=== PATIENT | female | born 1945 | race Caucasian/White ===

== ENCOUNTER 2021-01-14 19:20 | Inpatient (IN) | payer MEDICARE, OTHER, SELFPAY ==
--- NOTE | ~2021-01-14 | XR_ITS ---
EXAMINATION: XR HIP, RIGHT CLINICAL INFORMATION: Fall COMPARISON: None TECHNIQUE: Frontal view the pelvis with coned frontal and crosstable lateral views of the right hip of the right hip. FINDINGS: Patient status post bilateral total hip arthroplasties. Femoral components are well seated within the bilateral screwed in acetabular cups. Unfortunately there is an obliquely oriented periprosthetic fracture along the proximal femoral diaphysis to lateral subtrochanteric region of the right femur. Pelvic bones otherwise appear intact with degenerative changes in the lower lumbar spine. Multiple surgical clips noted. Vascular calcification seen. I do not appreciate any acute abnormality within the region of the visualized contralateral left hip. XR/XR hip RT w PEL1V IMPRESSION: Minimally displaced periprosthetic fracture along the femoral component of the right total hip arthroplasty.
--- NOTE | ~2021-01-14 | XR_ITS ---
EXAMINATION: PORTABLE CHEST 1 VIEW CLINICAL INFORMATION: preop . COMPARISON: No recent pertinent prior studies are available for comparison. TECHNIQUE: Portable frontal view of the chest was obtained. FINDINGS: The lungs are hypoexpanded. No focal infiltrate, effusion, edema, or pneumothorax. Cardiac and mediastinal silhouettes are within normal limits for technique. No acute bony abnormality seen with degenerative changes in the spine and bilateral shoulders. XR/XR chest 1V IMPRESSION: Hypoexpanded but no acute process seen otherwise
[2021-01-14 19:27] VITALS: BP 152/88; PULSE 86; O2SAT 97
--- NOTE | 2021-01-14 19:27 | ED.FALL ---
HPI - Fall General Chief Complaint: Fall Stated Complaint: fall Time Seen by Provider: 01/14/21 19:27 Source: patient Mode of arrival: ambulatory Limitations: no limitations History of Present Illness HPI Narrative: Patient with history of bilateral hip replacement right hip was replaced in 2001 was doing fine seen orthopedic last week x-ray was good, today patient tripped and fell over a rug and landed on her right hip complaining of increased pain in the right hip without any deformity unable to get up no head injury no loss of consciousness no other injury has some low back pain Related Data Home Medications Medication Instructions Recorded Confirmed alprazolam 0.5 mg PO BID PRN 01/14/21 01/14/21 aspirin 81 mg PO DAILY 01/14/21 01/14/21 bupropion HCl 150 mg PO DAILY 01/14/21 01/14/21 coenzyme Q10 100 mg PO DAILY 01/14/21 01/14/21 estradiol [Vagifem] 10 mcg VAGINAL TUSA 01/14/21 01/14/21 ezetimibe 10 mg PO DAILY 01/14/21 01/14/21 magnesium 500 mg PO DAILY 01/14/21 01/14/21 multivitamin 1 tab PO DAILY 01/14/21 01/14/21 omeprazole 40 mg PO QPM 01/14/21 01/14/21 quinapril 10 mg PO DAILY 01/14/21 01/14/21 rosuvastatin 20 mg PO DAILY 01/14/21 01/14/21 sertraline 200 mg PO DAILY 01/14/21 01/14/21 Allergies Allergy/AdvReac Type Severity Reaction Status Date / Time Sulfa (Sulfonamide Allergy Unknown SWELLING Unverified 03/22/20 14:34 Antibiotics) [SULFA (SULFONAMIDE ANTIBIOTICS)] UNKNOWN Allergy Unknown SWELLING Uncoded 03/22/20 14:34 Review of Systems Review of Systems: Constitutional : No Weight loss, No Fever, No Chills ENT/Mouth : No sore throat, No Rhinorrhea Eyes: No Eye Pain, No Swelling Cardiovascular : No Chest Pain, no palpitations Respiratory : No Cough, No Sputum, no shortness of breath Gastrointestinal : no Nausea, No Vomiting, No Diarrhea, No abdominal Pain, no black stools Genitourinary : No Dysuria, No Urinary Frequency Musculoskeletal : + joint pain, No Myalgias, No Joint Swelling Skin : No Skin Lesions, No rash Neuro : No Weakness, No Numbness, No Dizziness, No Headache Psych : No Anxiety/Panic, No Depression Heme/Lymph: No Bruising, No Lymphadenopathy Endocrine : No Polyuria, No Polydipsia All other systems reviewed and are negative [facility] Past Medical History Medical History Hyperlipemia Hypertension Osteoarthritis Surgical History S/P hip replacement Social History Social History Advance Directives: No Advance Directives Information Provided: Yes service: No Current occupational status: retired Physical Exam Vital Signs: Vital Signs: Last Vital Signs Temp 98.1 F 01/14/21 19:56 Pulse 90 01/14/21 23:07 Resp 22 H 01/14/21 23:07 BP 149/58 H 01/14/21 23:07 Pulse Ox 98 01/14/21 23:07 Body Mass Index 32.3 Appearance: Alert. Oriented X3. In moderate distress. Eyes: PERRLA, No Nystagmus HEENT: Pharynx normal. Oral Mucosa moist atraumatic normocephalic Neck: Normal inspection. Neck supple. CVS: Normal heart rate and rhythm. Pulses normal. Respiratory: No respiratory distress. Equal air entry bilateral, no wheezing/rales/rhonchi Abdomen: Soft and nontender. Bowel sounds are present, no mass palpable, no CVA tenderness Skin: Skin warm and dry. Normal skin color. Normal skin turgor. Extremities: No lower extremity edema. No calf tenderness tenderness at right femur trochanteric area no deformity increased pain on hip flexion neurovascular intact Neuro: Oriented X 3. No motor deficit. No sensory deficit.No cerebellar signs , cranial nerves II-XII intact MDM - Fall MDM Narrative Medical decision making narrative: Patient status post mechanical fall with right femur fracture around the right hip prosthesis. Case discussed Dr. Ga orthopedic advised to admit to medical service will plan to do surgery tomorrow Patient's lab showed increased WBC count of 21,000 with out any source of infection likely leukemoid reaction Lab Data Attestation: I reviewed the patient's lab results. Result diagrams: 01/14/21 20:09 01/14/21 20:09 Labs: Lab Results 01/14/21 01/14/21 01/14/21 Range/Units 20:09 20:09 20:09 WBC 21.0 H (4.8-10.8) X10*3/uL RBC 4.31 (4.20-5.50) X10*6/uL Hgb 12.2 (12.0-16.0) g/dl Hct 37.7 (37-47) % MCV 87.5 (80-98) fL MCH 28.3 (27.0-33.0) pg MCHC 32.4 (31.0-35.0) g/dl RDW 13.7 (11.0-16.0) % Plt Count 338 (160-400) X10*3/uL MPV 9.3 L (9.4-12.3) fL Immature Gran % (Auto) 0.5 H (0.0-0.4) % Neut % (Auto) 82.7 H (45-73) % Lymph % (Auto) 10.7 L (20-40) % [place] % (Auto) 5.4 (2-11) % Eos % (Auto) 0.6 (0-4) % Baso % (Auto) 0.1 (0-2) % Lymph # (Auto) 2.2 (1.2-4.9) X10*3/uL [place] # (Auto) 1.1 (0.1-1.2) X10*3/uL Eos # (Auto) 0.1 (0.0-0.4) X10*3/uL Baso # (Auto) 0.0 (0.0-0.2) X10*3/uL Abs Immat Gran (auto) 0.11 H (0.00-0.03) X10*3/uL Absolute Neuts (auto) 17.4 H (2.0-8.3) X10*3/uL Absolute Nucleated RBC 0.000 (0.0-0.012) X10*3/uL Nucleated RBC % (auto) 0.0 (0.0-0.2) /100WBC PT 10.9 (9.9-13.0) SEC INR 1.0 (0.9-1.1) APTT 34.6 (24.1-38.0) SEC Sodium 140 (135-145) mmol/L Potassium 4.7 (3.3-5.1) mmol/L Chloride 105 (96-108) mmol/L Carbon Dioxide 24 (22-29) mmol/L Anion Gap 16 (12-20) BUN 17 H (9-16) mg/dL Creatinine 1.01 (0.5-1.4) mg/dL Estim Creat Clear Calc 42.3 Estimated GFR 54 Random Glucose 105 (60-115) mg/dL Calcium 9.4 (8.4-10.2) mg/dL COVID-19 (LENY) (Negative) COVID-19 Clin Com 01/14/21 Range/Units 20:33 WBC (4.8-10.8) X10*3/uL RBC (4.20-5.50) X10*6/uL Hgb (12.0-16.0) g/dl Hct (37-47) % MCV (80-98) fL MCH (27.0-33.0) pg MCHC (31.0-35.0) g/dl RDW (11.0-16.0) % Plt Count (160-400) X10*3/uL MPV (9.4-12.3) fL Immature Gran % (Auto) (0.0-0.4) % Neut % (Auto) (45-73) % Lymph % (Auto) (20-40) % [place] % (Auto) (2-11) % Eos % (Auto) (0-4) % Baso % (Auto) (0-2) % Lymph # (Auto) (1.2-4.9) X10*3/uL [place] # (Auto) (0.1-1.2) X10*3/uL Eos # (Auto) (0.0-0.4) X10*3/uL Baso # (Auto) (0.0-0.2) X10*3/uL Abs Immat Gran (auto) (0.00-0.03) X10*3/uL Absolute Neuts (auto) (2.0-8.3) X10*3/uL Absolute Nucleated RBC (0.0-0.012) X10*3/uL Nucleated RBC % (auto) (0.0-0.2) /100WBC PT (9.9-13.0) SEC INR (0.9-1.1) APTT (24.1-38.0) SEC Sodium (135-145) mmol/L Potassium (3.3-5.1) mmol/L Chloride (96-108) mmol/L Carbon Dioxide (22-29) mmol/L Anion Gap (12-20) BUN (9-16) mg/dL Creatinine (0.5-1.4) mg/dL Estim Creat Clear Calc Estimated GFR Random Glucose (60-115) mg/dL Calcium (8.4-10.2) mg/dL COVID-19 (LENY) Negative (Negative) COVID-19 Clin Com See Note Imaging Data Hip x-ray: Attestation: I personally reviewed and interpreted this imaging study as follows: Radiologist's impression: [address] [id number] ReportSigned Patient: Ursula Winchester RMR#: [id number]: [id number]:[id number]/Sex: 75 / FADM Date: 01/14/21Loc: [email or web address] Dr: Ordering Physician: Maria G Abraham DO Date of Service: 01/14/21 Procedure(s): XR hip RT w PEL1V Accession Number(s): [id number] cc: Maria G Abraham DO~ EXAMINATION: XR HIP, RIGHT CLINICAL INFORMATION: Fall COMPARISON: None TECHNIQUE: Frontal view the pelvis with coned frontal and crosstable lateral views of the right hip of the right hip. FINDINGS: Patient status post bilateral total hip arthroplasties. Femoral components are well seated within the bilateral screwed in acetabular cups. Unfortunately there is an obliquely oriented periprosthetic fracture along the proximal femoral diaphysis to lateral subtrochanteric region of the right femur. Pelvic bones otherwise appear intact with degenerative changes in the lower lumbar spine. Multiple surgical clips noted. Vascular calcification seen. I do not appreciate any acute abnormality within the region of the visualized contralateral left hip. XR/XR hip RT w PEL1V IMPRESSION: Minimally displaced periprosthetic fracture along the femoral component of the right total hip arthroplasty. Discharge Plan Discharge Clinical Impression: Fracture of hip, right, closed Qualifiers: Encounter type: initial encounter Qualified Code(s): S72.001A - Fracture of unspecified part of neck of right femur, initial encounter for closed fracture Patient Disposition: Admitted As Inpatient
--- NOTE | 2021-01-14 19:35 | PC.NURSE ---
MD at bedside for eval. Pt transported to XRay, to be triaged upon return.
--- NOTE | 2021-01-14 19:46 | ECG_ITS ---
Test Reason : FALL Blood Pressure : / mmHG Vent. Rate : 089 BPM Atrial Rate : 089 BPM P-R Int : 180 ms QRS Dur : 066 ms QT Int : 372 ms P-R-T Axes : 073 046 028 degrees QTc Int : 452 ms Normal sinus rhythm Normal ECG When compared with ECG of 04-JAN-2002 09:56, No significant change was found Referred By: Alexys Mondragon Electronically Signed By:Osbaldo Chavira
[2021-01-14 19:56] VITALS: BP 149/51; PULSE 68; RESP 16; TEMP 36.7; O2SAT 100; BMI 32.3
--- NOTE | 2021-01-14 20:03 | PC.NURSE ---
at bedside explaining XRay results and plan for admission due to FX.
--- NOTE | 2021-01-14 20:15 | PC.NURSE ---
IV established, labs obtained. surgical instrument technician at bedside for EKG. Pt aware of plan for vo.
[2021-01-14 20:18] LABS: MANUAL DIFF FLAG NO
[2021-01-14 20:24] LABS: Basophils Percent Auto 0.1 % (0-2); Eosinophils Absolute Auto 0.1 X10*3/uL (0.0-0.4); Eosinophils Percent Auto 0.6 % (0-4); Hematocrit 37.7 % (37-47); Hemoglobin 12.2 g/dl (12.0-16.0); Imm Gran Abs Auto 0.11 X10*3/uL (0.00-0.03); Imm Gran Pct Auto 0.5 % (0.0-0.4); Lymphocytes Absolute Auto 2.2 X10*3/uL (1.2-4.9); Lymphocytes Percent Auto 10.7 % (20-40); Mean Corpuscular HGB Conc 32.4 g/dl (31.0-35.0); Mean Corpuscular Hemoglobin 28.3 pg (27.0-33.0); Mean Corpuscular Volume 87.5 fL (80-98); Mean Platelet Volume 9.3 fL (9.4-12.3); Monocytes Absolute Auto 1.1 X10*3/uL (0.1-1.2); Monocytes Percent Auto 5.4 % (2-11); Neutrophils Absolute Auto 17.4 X10*3/uL (2.0-8.3); Neutrophils Percent Auto 82.7 % (45-73); Platelet Count 338 X10*3/uL (160-400); Red Blood Count 4.31 X10*6/uL (4.20-5.50); Red Cell Distribution Width 13.7 % (11.0-16.0)
[2021-01-14 20:29] LABS: Prothrombin Time 10.9 SEC (9.9-13.0)
[2021-01-14 20:31] LABS: Partial Thromboplastin Time 34.6 SEC (24.1-38.0)
[2021-01-14] MEDS: Morphine Sulfate 4 MG/ML CARTRIDGE IVPUSH (20:38)
[2021-01-14] MEDS: ondansetron HCL 4 MG/2 ML VIAL IVPUSH (20:39)
[2021-01-14 20:46] LABS: Anion Gap 16 (12-20); Blood Urea Nitrogen 17 mg/dL (9-16); Calcium 9.4 mg/dL (8.4-10.2); Carbon Dioxide 24 mmol/L (22-29); Chloride 105 mmol/L (96-108); Creatinine Clr Calc Pharmacy 42.3; Estimated Glomerular Filt Rate 54; Glucose Random 105 mg/dL (60-115); Potassium 4.7 mmol/L (3.3-5.1); Sodium 140 mmol/L (135-145)
[2021-01-14 20:54] LABS: COVID-19 Test Negative (Negative)
--- NOTE | 2021-01-14 20:56 | PC.NURSE ---
Dunlap inserted per MD order, clear yellow UO noted. Pharmacy at bedside for med rec. Pt aware of plan to admit.
--- NOTE | 2021-01-14 21:16 | PHA.MEDREC ---
Pharmacy Consult ? Medication Reconciliation Pharmacy has completed the medication reconciliation.
--- NOTE | 2021-01-14 22:52 | PC.NURSE ---
Hospitalist at bedside for primary eval.
--- NOTE | 2021-01-14 23:06 | PC.NURSE ---
CM at bedside.
[2021-01-14 23:07] VITALS: BP 149/58; PULSE 90; RESP 22; O2SAT 98
[2021-01-14] MEDS: Omeprazole 40 MG CAPSULE.DR PO (23:09)
--- NOTE | 2021-01-14 23:27 | MHC.CM.PN ---
Addendum entered by Anastasia Jarvis 01/14/21 23:40: Pt tells CM that she will meet doctor in the morning and if she likes her, she will have surgery here. Had hip surgery in 2000.2001. Original Note: CM met with bertrand woman and her daughter, Cris Winchester ([phone]). IMM reviewed and signed per protocol 01/14/21@2320. [facility]/ Damián Winchester ([phone]). Copy requested. 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 Pt lives with , has cane, walker and wheelchair. Pt had bilateral hip replacements [facility] from [facility]. Pt and daughter expressing concerns about having care at [facility], since pt had hip replacement surgery there. Pt is agreeable to admisssion and pain management. Pt would like to meet orthopedist. Explained that hospitalist will admit her, that ED provider had spoken with and that she will be seen tomorrow by orthopedic surgeon, with surgery at some time tomorrow. Pt aware that she makes the decisions as to who and where care will be provided. Pt met with Dr. Gutierrez. Pt seems much more comfortable with having surgery here. Pt would like Dr. Angel if available. Pt aware that she will need some PT rehab. Does not feel she has the strength for acute rehab. Pt is requesting STR at [facility] or [facility]. No referrals placed pending pt decision for care in am. Awaiting room assignment. CM to follow for d/c needs.
[2021-01-14] MEDS: Acetaminophen 325 MG TABLET 650 MG PO (23:32)
[2021-01-14] MEDS: ALPRAZolam 0.5 MG TABLET PO (23:32)
--- NOTE | 2021-01-14 23:37 | PC.NURSE ---
Pt reporting 6/10 pain to right hip, requesting pain medication. Pt medicated with Tylenol and Xanax, aware of plan for Morphine @ 0030. VSS. Lights dim for comfort. Continue to monitor.
[2021-01-15] VITALS (7 sets, daily range): BP systolic 105–139; BP diastolic 45–60; PULSE 70–87; RESP 12–18; TEMP 36.8; O2SAT 92–100
[2021-01-15] MEDS: 0.9 % Sodium Chloride Flush 3 ML SYRINGE IVFLUSH ×2 (00:11→09:29)
--- NOTE | 2021-01-15 05:19 | PC.NURSE ---
Pt resting in bed, wakes easily to voice. Pt reports 5/10 pain to right hip, states the pain is tolerable, pt requesting to hold on the IV Morphine. Pt aware the order is Q4H and to ring when requesting medication for pain. VSS at this time. Daughter remains at bedside. Lights dim, door closed per request.
--- NOTE | 2021-01-15 05:59 | P.HPHOSP_ITS ---
History of Present Illness Date of Service: 01/15/21 Chief Complaint: Fall This is a 75-year-old female with past medical history of hypertension, hyperlipidemia, osteoarthritis, status post bilateral hip replacement who presents to the hospital after mechanical fall. Patient reports that she was preparing dinner, tripped on a mat in her kitchen and fell forward, when she fell she has significant pain on her right leg, hand therefore came into the hospital. She denies any loss of consciousness, no head injury, no dizziness, no abdominal pain nausea or vomiting, no chest pain, no shortness of breath, no urinary symptoms. No diarrhea constipation. No numbness tingling or weakness. Review of system otherwise negative On arrival to the ED hemodynamically stable with no significant abnormal vitals Labs are significant for WBC count of 21,000, otherwise unremarkable Hip x-ray shows minimally displaced periprosthetic fracture along the femoral component of the right total hip arthroplasty Patient will be admitted with consult to orthopedic surgery Review of Systems Review of Systems: Yes all other systems are reviewed and are negative [facility] Medical History Hyperlipemia Hypertension Osteoarthritis Surgical History S/P hip replacement Social History Advance Directives: No Advance Directives Information Provided: Yes service: No Current occupational status: retired Meds Allergies Allergy/AdvReac Type Severity Reaction Status Date / Time Sulfa (Sulfonamide Allergy Unknown SWELLING Unverified 03/22/20 14:34 Antibiotics) [SULFA (SULFONAMIDE ANTIBIOTICS)] UNKNOWN Allergy Unknown SWELLING Uncoded 03/22/20 14:34 Active Medications: Current Medications Generic Name Dose Route Start Last Admin Trade Name Freq PRN Reason Stop Dose Admin Acetaminophen 650 mg 01/14/21 22:22 01/14/21 23:32 Acetaminophen 325 Mg Tablet PO 650 mg Q6H PRN Administration Pain, Mild (Pain Scale 1-3) Alprazolam 0.5 mg 01/14/21 22:25 01/14/21 23:32 Alprazolam 0.5 Mg Tablet PO 0.5 mg BID PRN Administration Anxiety Aspirin 81 mg 01/15/21 09:00 Aspirin Enteric Coated 81 Mg Tablet. PO DAILY ALESSIA Atorvastatin Calcium 80 mg 01/15/21 21:00 Atorvastatin Calcium 80 Mg Tablet PO BEDTIME [facility] Bupropion HCl 150 mg 01/15/21 09:00 Bupropion Hcl Xl 150 Mg Tab.Er.24h PO DAILY [facility] Docusate Sodium 100 mg 01/14/21 22:22 Docusate Sodium 100 Mg Capsule PO DAILY PRN Constipation Ezetimibe 10 mg 01/15/21 09:00 Ezetimibe 10 Mg Tablet PO DAILY [facility] Lisinopril 10 mg 01/15/21 09:00 Lisinopril 10 Mg Tablet PO DAILY [facility] Magnesium Oxide 400 mg 01/15/21 09:00 Magnesium Oxide 400 Mg Tablet PO DAILY [facility] Morphine Sulfate 4 mg 01/14/21 22:25 Morphine Sulfate 4 Mg/Ml Cartridge IVPUSH Q4H PRN Pain, Severe (Pain Scale 7-10) Multivitamins/Vitamin C 1 tab 01/15/21 09:00 Multivitamin Tablet PO DAILY [facility] Omeprazole 40 mg 01/14/21 22:30 01/14/21 23:09 Omeprazole 40 Mg Capsule. PO 40 mg DAILY@0630 [facility] Administration Ondansetron HCl 4 mg 01/14/21 22:22 Ondansetron Hcl 4 Mg/2 Ml Vial IVPUSH Q8H PRN Nausea and Vomiting Pharmacy Consult 1 each 01/14/21 20:04 Consult Rx Perform Med Rec MISCELLANE ONCE PRN Consult order Sertraline HCl 200 mg 01/15/21 09:00 Sertraline Hcl 100 Mg Tablet PO DAILY [facility] Sodium Chloride 3 ml 01/15/21 00:00 01/15/21 00:11 0.9 % Sodium Chloride Flush 3 Ml Syringe IVFLUSH 3 ml QSHIFT [facility] Administration Home Medications Medication Instructions Recorded Confirmed Last Taken Type alprazolam 0.5 mg PO BID PRN 01/14/21 01/14/21 01/14/21 History aspirin 81 mg PO DAILY 01/14/21 01/14/21 01/14/21 History bupropion HCl 150 mg PO DAILY 01/14/21 01/14/21 01/14/21 History coenzyme Q10 100 mg PO DAILY 01/14/21 01/14/21 01/14/21 History estradiol [Vagifem] 10 mcg VAGINAL TUSA 01/14/21 01/14/21 01/12/21 History ezetimibe 10 mg PO DAILY 01/14/21 01/14/21 01/14/21 History magnesium 500 mg PO DAILY 01/14/21 01/14/21 01/14/21 History multivitamin 1 tab PO DAILY 01/14/21 01/14/21 01/14/21 History omeprazole 40 mg PO QPM 01/14/21 01/14/21 01/13/21 History quinapril 10 mg PO DAILY 01/14/21 01/14/21 01/14/21 History rosuvastatin 20 mg PO DAILY 01/14/21 01/14/21 01/13/21 History sertraline 200 mg PO DAILY 01/14/21 01/14/21 01/14/21 History Physical Exam Vital Signs and Narrative: Vital Signs: Last Vital Signs Temp 98.1 F 01/14/21 19:56 Pulse 70 01/15/21 05:18 Resp 16 01/15/21 05:18 BP 120/56 L 01/15/21 05:18 Pulse Ox 95 01/15/21 05:18 Body Mass Index 32.3 Const: General: cooperative and no acute distress Orientation/consciousness: patient oriented x3 Eyes: General: appearance normal, both eyes and all related structures Resp: Effort & Inspection: normal respiratory effort and able to speak in complete sentences Cardio: Rate: regular rate Rhythm: regular rhythm GI: Palpation (GI): Soft to palpation Auscultation: normal bowel sounds Skin: General skin exam: no rashes or lesions noted Neuro: General: patient oriented x3 Cognition (Neuro): normal cognition Extrem: Other: Significant pain on the right hip with movement, currently has ice packs placed on it General: Yes normal to inspection and Yes no pedal edema Results Labs CBC and Chem 7: 01/14/21 20:09 01/14/21 20:09 Labs: Laboratory Results - last 24 hr 01/14/21 01/14/21 01/14/21 20:09 20:09 20:09 MCV 87.5 MCH 28.3 MCHC 32.4 RDW 13.7 Plt Count 338 MPV 9.3 L Immature Gran % (Auto) 0.5 H Neut % (Auto) 82.7 H Lymph % (Auto) 10.7 L [place] % (Auto) 5.4 Eos % (Auto) 0.6 Baso % (Auto) 0.1 Lymph # (Auto) 2.2 [place] # (Auto) 1.1 Eos # (Auto) 0.1 Baso # (Auto) 0.0 Abs Immat Gran (auto) 0.11 H Absolute Neuts (auto) 17.4 H Absolute Nucleated RBC 0.000 Nucleated RBC % (auto) 0.0 PT 10.9 INR 1.0 APTT 34.6 Anion Gap 16 Estim Creat Clear Calc 42.3 Estimated GFR 54 Random Glucose 105 Calcium 9.4 COVID-19 (LENY) COVID-19 Clin Com 01/14/21 20:33 MCV MCH MCHC RDW Plt Count MPV Immature Gran % (Auto) Neut % (Auto) Lymph % (Auto) [place] % (Auto) Eos % (Auto) Baso % (Auto) Lymph # (Auto) [place] # (Auto) Eos # (Auto) Baso # (Auto) Abs Immat Gran (auto) Absolute Neuts (auto) Absolute Nucleated RBC Nucleated RBC % (auto) PT INR APTT Anion Gap Estim Creat Clear Calc Estimated GFR Random Glucose Calcium COVID-19 (LENY) Negative COVID-19 Clin Com See Note Imaging Radiologist's Impressions: Impressions Hip/Pelvis X-Ray 01/14/21 19:25 IMPRESSION: Minimally displaced periprosthetic fracture along the femoral component of the right total hip arthroplasty. Chest X-Ray 01/14/21 19:38 IMPRESSION: Hypoexpanded but no acute process seen otherwise Assessment and Plan (1) Periprosthetic fracture of hip: Status: Acute This is a 75-year-old female with past medical history of hip replacement bilaterally, who presents to the hospital with a fall. Found to have right hip fracture # periprosthetic right fracture of hip - fall was mechanical - no evidence of loss of consciousness, no dizziness, no syncope - x-ray of the hip showed minimally displaced periprosthetic fracture along the femoral component of the right total hip arthroplasty - orthopedic surgery was consulted by the ED - will see patient in a.m. - will keep patient NPO for possible intervention - pain control # hyperlipidemia - continue statin # hypertension - stable - continue quinapril # depression - continue sertraline and bupropion as well as alprazolam DVT prophylaxis: SCDs in anticipation of surgical intervention Quality Stroke Does the patient have a stroke diagnosis?: No VTE Prior VTE?: No VTE Risk Level:: Medical - moderate - high VTE Device Contraindication: N/A - Device Ordered VTE Drug Contraindication: Treatment Not Indicated
[2021-01-15] MEDS: Omeprazole 40 MG CAPSULE.DR PO (06:08)
--- NOTE | 2021-01-15 06:11 | PC.NURSE ---
Pt medicated per SEP. VSS. 400 ml of UO noted and documented. Pt resting in POC. Continue to monitor.
[2021-01-15 08:33] LABS: MANUAL DIFF FLAG NO
[2021-01-15 08:36] LABS: Basophils Percent Auto 0.2 % (0-2); Eosinophils Absolute Auto 0.1 X10*3/uL (0.0-0.4); Eosinophils Percent Auto 1.2 % (0-4); Hematocrit 38.1 % (37-47); Hemoglobin 12.2 g/dl (12.0-16.0); Imm Gran Abs Auto 0.03 X10*3/uL (0.00-0.03); Imm Gran Pct Auto 0.3 % (0.0-0.4); Lymphocytes Absolute Auto 1.9 X10*3/uL (1.2-4.9); Mean Corpuscular Hemoglobin 28.2 pg (27.0-33.0); Mean Platelet Volume 9.3 fL (9.4-12.3); Monocytes Absolute Auto 0.8 X10*3/uL (0.1-1.2); Monocytes Percent Auto 8.2 % (2-11); Neutrophils Absolute Auto 6.4 X10*3/uL (2.0-8.3); Neutrophils Percent Auto 69.1 % (45-73); Platelet Count 286 X10*3/uL (160-400); Red Blood Count 4.33 X10*6/uL (4.20-5.50); Red Cell Distribution Width 13.8 % (11.0-16.0); White Blood Count 9.2 X10*3/uL (4.8-10.8)
[2021-01-15 09:04] LABS: Anion Gap 14 (12-20); Blood Urea Nitrogen 16 mg/dL (9-16); Carbon Dioxide 24 mmol/L (22-29); Chloride 105 mmol/L (96-108); Creatinine Clr Calc Pharmacy 46.5; Estimated Glomerular Filt Rate 60; Glucose Random 112 mg/dL (60-115); Potassium 4.4 mmol/L (3.3-5.1); Sodium 139 mmol/L (135-145)
[2021-01-15] MEDS: Sertraline HCL 100 MG TABLET 200 MG PO (09:27)
[2021-01-15] MEDS: Magnesium Oxide 400 MG TABLET PO (09:27)
[2021-01-15] MEDS: Ezetimibe 10 MG TABLET PO (09:28)
[2021-01-15] MEDS: lisinopriL 10 MG TABLET PO (09:28)
--- NOTE | 2021-01-15 10:24 | PC.NURSE ---
This RN on first contact with pt who states she would like to be transferred to [facility] for surgical consult. Daughter not agreeable with plan discussed with Dr Grullon. Daughter states she spoke with director of [facility] who will have trauma surgeon consult her in ED at [facility] however no specific MD name given for accepting physician. Dr Castaneda notified and will be down to speak to pt regarding ?transfer. Pt acceptable to some morning meds but declined some d/t unk surgical plan. Request pain meds to be given prior to moving/transfer but has no pain with rest (at this time)
--- NOTE | 2021-01-15 10:37 | PC.NURSE ---
Dr Grullon and Dr Castaneda down to speak with pt/daughter, Awaiting [facility] to speak to [facility] regarding accepting MD as pt is inpatient and will need to be transported to floor at [facility]
[2021-01-15] MEDS: Morphine Sulfate 4 MG/ML CARTRIDGE IVPUSH (12:01)
[2021-01-15] MEDS: Lactated Ringers 1,000 ML 125 ML IVCONT (12:11)
--- NOTE | 2021-01-15 12:35 | PC.NURSE ---
Daughter of pt continues to inquire about transfer to [facility], increasingly agitated with staff as family is made aware of option to leave AMA or await accepting MD from [facility]. Swapna Salmeron (bilingual manager) called to assist and at bedside with Dr Castaneda discussing options with pt and daughter. Pt/family now await Michael (executive vice president and chief operating officer) as requested S/p morphine pt states pain 3/10, appears comfortable in bed. Cool packs applied to right upper thigh as pt reports this helps. Vitals stable. Dunlap with dark yellow urine. LR at 125ml/hr started. Moist swabs to lips for comfort
--- NOTE | 2021-01-15 12:47 | PM.DS ---
DS: Providers Provider Date of Service: 01/15/21 Date of admission: 01/14/21 22:22 Primary care physician: Smith Baez MD Consults: 01/14/21 22:24 Consult to Orthopedics Routine Consulting Provider: Sal Grullon Reason for consultation: hip fracture Has provider been notified: Yes DS: Diagnosis Discharge Diagnosis (1) Periprosthetic fracture of hip: Status: Acute DS: Medications Discharge Medications Home Medications: Home Medications Medication Instructions Recorded Confirmed alprazolam 0.5 mg PO BID PRN 01/14/21 01/14/21 aspirin 81 mg PO DAILY 01/14/21 01/14/21 bupropion HCl 150 mg PO DAILY 01/14/21 01/14/21 coenzyme Q10 100 mg PO DAILY 01/14/21 01/14/21 estradiol [Vagifem] 10 mcg VAGINAL TUSA 01/14/21 01/14/21 ezetimibe 10 mg PO DAILY 01/14/21 01/14/21 magnesium 500 mg PO DAILY 01/14/21 01/14/21 multivitamin 1 tab PO DAILY 01/14/21 01/14/21 omeprazole 40 mg PO QPM 01/14/21 01/14/21 quinapril 10 mg PO DAILY 01/14/21 01/14/21 rosuvastatin 20 mg PO DAILY 01/14/21 01/14/21 sertraline 200 mg PO DAILY 01/14/21 01/14/21 DS: Summary Hospital Course Hospital Course: Chief Complaint: Fall This is a 75-year-old female with past medical history of hypertension, hyperlipidemia, osteoarthritis, status post bilateral hip replacement who presents to the hospital after mechanical fall. Patient reports that she was preparing dinner, tripped on a mat in her kitchen and fell forward, when she fell she has significant pain on her right leg, hand therefore came into the hospital. She denies any loss of consciousness, no head injury, no dizziness, no abdominal pain nausea or vomiting, no chest pain, no shortness of breath, no urinary symptoms. No diarrhea constipation. No numbness tingling or weakness. Review of system otherwise negative On arrival to the ED hemodynamically stable with no significant abnormal vitals Labs are significant for WBC count of 21,000, otherwise unremarkable Hip x-ray shows minimally displaced periprosthetic fracture along the femoral component of the right total hip arthroplasty Hospital course: Patient was admitted and consult requested with Dr. Grullon who offered to operate on the patient, however patient and daughter who is healthcare Proxy stated that they prefer to have surgery done at [facility] where she has had prior orthopedic surgerie and as such I spoke to Dr Nguyễn at [facility] and accepted the patient in transfer. I had been on communication and about the plan to transfer with patient and her daughter. They absolutely wanted to go to [facility] even if it took AMA, fortunately we did not have to resort to that avenue. Time Spent with Patient Time attestation: Total time spent providing and/or coordinating discharge services: Discharge coordination time: Greater than 30 minutes Quality: Stroke Does the patient have a stroke diagnosis?: No Physical Exam Vital Signs: Vital Signs: Last Vital Signs Temp 98.1 F 01/14/21 19:56 Pulse 87 01/15/21 11:52 Resp 18 01/15/21 11:52 BP 124/60 01/15/21 12:12 Pulse Ox 97 01/15/21 12:12 Body Mass Index 32.3 DS: Data Data Completed and Pending Labs on day of discharge: Laboratory Results - last 24 hr 01/14/21 01/14/21 01/14/21 20:09 20:09 20:09 WBC 21.0 H RBC 4.31 Hgb 12.2 Hct 37.7 MCV 87.5 MCH 28.3 MCHC 32.4 RDW 13.7 Plt Count 338 MPV 9.3 L Immature Gran % (Auto) 0.5 H Neut % (Auto) 82.7 H Lymph % (Auto) 10.7 L [place] % (Auto) 5.4 Eos % (Auto) 0.6 Baso % (Auto) 0.1 Lymph # (Auto) 2.2 [place] # (Auto) 1.1 Eos # (Auto) 0.1 Baso # (Auto) 0.0 Abs Immat Gran (auto) 0.11 H Absolute Neuts (auto) 17.4 H Absolute Nucleated RBC 0.000 Nucleated RBC % (auto) 0.0 PT 10.9 INR 1.0 APTT 34.6 Sodium 140 Potassium 4.7 Chloride 105 Carbon Dioxide 24 Anion Gap 16 BUN 17 H Creatinine 1.01 Estim Creat Clear Calc 42.3 Estimated GFR 54 Random Glucose 105 Calcium 9.4 COVID-19 (LENY) COVID-19 Clin Com 01/14/21 01/15/21 01/15/21 20:33 08:29 08:29 WBC 9.2 RBC 4.33 Hgb 12.2 Hct 38.1 MCV 88.0 MCH 28.2 MCHC 32.0 RDW 13.8 Plt Count 286 MPV 9.3 L Immature Gran % (Auto) 0.3 Neut % (Auto) 69.1 Lymph % (Auto) 21.0 [place] % (Auto) 8.2 Eos % (Auto) 1.2 Baso % (Auto) 0.2 Lymph # (Auto) 1.9 [place] # (Auto) 0.8 Eos # (Auto) 0.1 Baso # (Auto) 0.0 Abs Immat Gran (auto) 0.03 Absolute Neuts (auto) 6.4 Absolute Nucleated RBC 0.000 Nucleated RBC % (auto) 0.0 PT INR APTT Sodium 139 Potassium 4.4 Chloride 105 Carbon Dioxide 24 Anion Gap 14 BUN 16 Creatinine 0.92 Estim Creat Clear Calc 46.5 Estimated GFR 60 Random Glucose 112 Calcium 9.0 COVID-19 (LENY) Negative COVID-19 Clin Com See Note Discharge Plan Discharge Anticipated Discharge Date/Time: 01/15/21 13:11 Patient Disposition: Xfer Acute Care Hospital Discharge Diagnosis: Hip fracture Referrals: [facility] [Outside] - 1 Week Smith Baez MD [Primary Care Provider] - 1 Week Discharge Medications: Continued sertraline 100 mg tablet 200 mg PO DAILY RF: 0 omeprazole 40 mg capsule,delayed release(DR/EC) 40 mg PO QPM RF: 0 quinapril 10 mg tablet 10 mg PO DAILY RF: 0 alprazolam 0.5 mg tablet 0.5 mg PO BID PRN (Reason: Anxiety) RF: 0 ezetimibe 10 mg tablet 10 mg PO DAILY RF: 0 rosuvastatin 20 mg tablet 20 mg PO DAILY RF: 0 bupropion HCl 150 mg tablet extended release 24 hr 150 mg PO DAILY RF: 0 estradiol [Vagifem] 10 mcg tablet 10 mcg vaginal TUSA RF: 0 multivitamin Tablet 1 tab PO DAILY RF: 0 magnesium 500 mg Tablet 500 mg PO DAILY RF: 0 coenzyme Q10 100 mg Capsule 100 mg PO DAILY RF: 0 Discontinued aspirin 81 mg Tablet,Delayed Release (Dr/Ec) 81 mg PO DAILY RF: 0 Discharge Orders: Discharge Order (Routine); Ordered 01/15/21 Ordered By: Jefe Castaneda Diet: advance to usual diet Activity on Discharge: As tolerated Stand Alone Forms: Patient Portal Discharge page Care Plan Goals: to have hip repaire Health Concerns: hip fracture Plan of Treatment: transfer to [facility] Assessment: As above
--- NOTE | 2021-01-15 12:49 | PC.NURSE ---
Sat down to 88-90% on room air s/p morphine and falling asleep, placed on 2lpm via nc. sat up to 98%
--- NOTE | 2021-01-15 14:57 | PC.NURSE ---
CALL RECEIVED FROM [facility] [place] LINE WITH ROOM ASSIGNMENT DR GANNON ACCEPTING MD ISAAC PEDRAZA 6 ROOM 26 RN TO RN [phone]
[2021-01-15] MEDS: Morphine Sulfate 2 MG/ML CARTRIDGE 1 MG IVPUSH ×2 (15:58)
== END 2021-01-15 15:08 | disposition short-term general hospital (02) | DRG 561 ==
LOC: HO.ED 21:32 → HO.EDOVER 22:42 → HO.S3 01-15 17:53
PROVIDERS: Admitting Provider Internal Medicine; Emergency Provider Internal Medicine; PCP Internal Medicine; Visit Provider Internal Medicine
DX: M97.01XA Periprosthetic fracture around internal prosthetic right hip joint, initial encounter (principal); Z96.643 Presence of artificial hip joint, bilateral; E78.5 Hyperlipidemia, unspecified; I10 Essential (primary) hypertension; F32.9 Major depressive disorder, single episode, unspecified; Z20.822 Contact with and (suspected) exposure to COVID-19; Z88.2 Allergy status to sulfonamides; Z79.899 Other long term (current) drug therapy
CPT/HCPCS: 36415; 71045; 73502; 80048; 85025; 85610; 85730; 87635; 93005; 99285; J2270; J2405

== ENCOUNTER 2021-03-25 14:11 | Outpatient (REF) | payer MEDICARE, OTHER, SELFPAY ==
[2021-03-25 16:32] LABS: Hematocrit 36.5 % (37-47); Hemoglobin 10.8 g/dl (12.0-16.0); Mean Corpuscular HGB Conc 29.6 g/dl (31.0-35.0); Mean Corpuscular Hemoglobin 26.3 pg (27.0-33.0); Mean Corpuscular Volume 88.8 fL (80-98); Mean Platelet Volume 9.9 fL (9.4-12.3); Platelet Count 546 X10*3/uL (160-400); Red Blood Count 4.11 X10*6/uL (4.20-5.50); Red Cell Distribution Width 14.4 % (11.0-16.0); White Blood Count 10.8 X10*3/uL (4.8-10.8)
[2021-03-25 17:00] LABS: Alanine Aminotransferase 7 U/L (0-31); Albumin Level 3.9 g/dL (3.5-5.0); Alkaline Phosphatase 159 U/L (39-117); Anion Gap 15 (12-20); Aspartate Amino Transferase 13 U/L (5-31); Bilirubin Total 0.2 mg/dL (0.0-1.0); Blood Urea Nitrogen 17 mg/dL (9-16); Calcium 9.3 mg/dL (8.4-10.2); Carbon Dioxide 26 mmol/L (22-29); Chloride 103 mmol/L (96-108); Estimated Glomerular Filt Rate > 60; Glucose Random 157 mg/dL (60-115); Iron 49 mcg/dL (30-160); Percent Iron Saturation 14 % (15-50); Potassium 4.9 mmol/L (3.3-5.1); Sodium 139 mmol/L (135-145); Total Iron Binding Capacity 345 mcg/dL (228-428); Total Protein 6.8 g/dL (6.5-8.0); Unsaturated Iron Binding 296 ug/dL
[2021-03-25 17:40] LABS: Folate > 20.0 ng/mL (> or = 4.0); Vitamin B12 321 pg/mL (200-900)
== END 2021-03-25 14:12 | disposition home or self-care (01) ==
LOC: HO.HMGCLNP 14:11
PROVIDERS: Visit Provider Internal Medicine
DX: D62 Acute posthemorrhagic anemia (principal)
CPT/HCPCS: 80053; 82607; 82746; 83540; 85027

== ENCOUNTER 2022-05-19 08:15 | Day surgery (SDC) | payer MEDICARE, OTHER, SELFPAY ==
[2022-05-13 15:12] VITALS: BMI 34.9
--- NOTE | 2022-05-15 13:21 | P.CONAN_ITS ---
Documented by User: Dayana Dorsey NP 05/15/22 13:25 HPI - Anesthesia Eval Consult details Narrative: 77yo F for Left Cataract Extraction IOL Insertion PCP cleared No previous cataract on record [facility] Active Problems Active Problems: All Active Problems (Updated 05/13/22 @ 15:12 by Ilene Dewey RN) Fracture of hip, right, closed (Acute) Periprosthetic fracture of hip (Acute) Past Medical History Medical History Anxiety Cataracts, both eyes GERD (gastroesophageal reflux disease) History of blood transfusion History of femur fracture Hyperlipemia Hypertension Knee pain, left Low back pain Osteoarthritis PUD (peptic ulcer disease) Urinary tract infection Surgical History Surgical History History of esophagogastroduodenoscopy (EGD) Hx of bilateral hip replacements Hx of colonoscopy Hx of hysterectomy Social History Social History Are you a primary career orientation teacher to a significant other at home: No Do you presently have visiting nurse or other home services: No Patient Tobacco Use Status: Never used Tobacco Use of substances other than those prescribed or required for medical reasons: No Have you been hit, kicked, punched, or otherwise hurt by someone within the past year? If so, by whom?: No Are you DNR?: No Advance Directives: No Advance Directives Information Provided: Yes Advance Directives on File: No Recently lost weight without trying: No Nutrition Risks: Poor intake 0-25% >4 days and Surgical patient >75years service: No Current occupational status: retired [employer] Allergies Allergy/AdvReac Type Severity Reaction Status Date / Time ciprofloxacin [From Cipro] Allergy Hives Verified 05/19/22 09:14 Home Medications Medication Instructions Recorded Confirmed Last Taken Type alprazolam 0.5 mg tablet 0.5 mg PO BID PRN Anxiety 01/14/21 05/13/22 05/19/22 History bupropion HCl 150 mg 24 hr tablet, 150 mg PO DAILY 01/14/21 05/13/22 05/19/22 History extended release coenzyme Q10 100 mg capsule 100 mg PO DAILY 01/14/21 05/13/22 01/14/21 History estradiol 10 mcg vaginal tablet 10 mcg vaginal 2XW 01/14/21 05/13/22 01/12/21 History (Vagifem) ezetimibe 10 mg tablet 10 mg PO DAILY 01/14/21 05/13/22 01/14/21 History magnesium 500 mg tablet 500 mg PO DAILY 01/14/21 05/13/22 01/14/21 History multivitamin 1 tab PO DAILY 01/14/21 05/13/22 01/14/21 History omeprazole 40 mg capsule,delayed 40 mg PO QAM 01/14/21 05/13/22 05/19/22 History release quinapril 10 mg tablet 10 mg PO DAILY 01/14/21 05/13/22 01/14/21 History rosuvastatin 20 mg tablet 20 mg PO DAILY 01/14/21 05/13/22 01/13/21 History sertraline 100 mg tablet 200 mg PO DAILY 01/14/21 05/13/22 05/19/22 History aspirin 81 mg chewable tablet 81 mg PO DAILY 05/13/22 05/13/22 Unknown History sulfamethoxazole 800 1 tab PO BID 05/13/22 05/13/22 Unknown History mg-trimethoprim 160 mg tablet (Bactrim DS) Exam Exam Date and Time: May 15, 2022 1321 Height,Weight and Vital Signs: Height 4 ft 11 in Weight 78.471 kg Assessment and Plan Assessment Anesthesia Assessment: Chart Reviewed Documented by User: Nathan iGraldo MD 05/19/22 09:17 [facility] Past Medical History Medical History Anxiety Cataracts, both eyes GERD (gastroesophageal reflux disease) History of blood transfusion History of femur fracture Hyperlipemia Hypertension Knee pain, left Low back pain Osteoarthritis PUD (peptic ulcer disease) Urinary tract infection Family History Family history of problems with anesthesia: No Surgical History Surgical History History of esophagogastroduodenoscopy (EGD) Hx of bilateral hip replacements Hx of colonoscopy Hx of hysterectomy History of Problems with Anesthesia: No Social History Social History Are you a primary career orientation teacher to a significant other at home: No Do you presently have visiting nurse or other home services: No Patient Tobacco Use Status: Never used Tobacco Use of substances other than those prescribed or required for medical reasons: No Have you been hit, kicked, punched, or otherwise hurt by someone within the past year? If so, by whom?: No Are you DNR?: No Advance Directives: No Advance Directives Information Provided: Yes Advance Directives on File: No Recently lost weight without trying: No Nutrition Risks: Poor intake 0-25% >4 days and Surgical patient >75years service: No Current occupational status: retired Meds Allergies Allergy/AdvReac Type Severity Reaction Status Date / Time ciprofloxacin [From Cipro] Allergy Hives Verified 05/19/22 09:14 Home Medications Medication Instructions Recorded Confirmed Last Taken Type alprazolam 0.5 mg tablet 0.5 mg PO BID PRN Anxiety 01/14/21 05/13/22 05/19/22 History bupropion HCl 150 mg 24 hr tablet, 150 mg PO DAILY 01/14/21 05/13/22 05/19/22 History extended release coenzyme Q10 100 mg capsule 100 mg PO DAILY 01/14/21 05/13/22 01/14/21 History estradiol 10 mcg vaginal tablet 10 mcg vaginal 2XW 01/14/21 05/13/22 01/12/21 History (Vagifem) ezetimibe 10 mg tablet 10 mg PO DAILY 01/14/21 05/13/22 01/14/21 History magnesium 500 mg tablet 500 mg PO DAILY 01/14/21 05/13/22 01/14/21 History multivitamin 1 tab PO DAILY 01/14/21 05/13/22 01/14/21 History omeprazole 40 mg capsule,delayed 40 mg PO QAM 01/14/21 05/13/22 05/19/22 History release quinapril 10 mg tablet 10 mg PO DAILY 01/14/21 05/13/22 01/14/21 History rosuvastatin 20 mg tablet 20 mg PO DAILY 01/14/21 05/13/22 01/13/21 History sertraline 100 mg tablet 200 mg PO DAILY 01/14/21 05/13/22 05/19/22 History aspirin 81 mg chewable tablet 81 mg PO DAILY 05/13/22 05/13/22 Unknown History sulfamethoxazole 800 1 tab PO BID 05/13/22 05/13/22 Unknown History mg-trimethoprim 160 mg tablet (Bactrim DS) Exam Airway Mallampati Class: II TM Dist: >3cm Neck ROM: Full Loose/Missing/Broken Teeth: Yes (extremely poor discolored teeth uppers spaced out diffusely, lowers also same and a couple are missing lower front) Heart: [id number] Lungs: cta b/l Assessment and Plan Assessment Anesthesia Assessment: Anesthesia Plan Discussed Final Anesthetic Review Family History of Problems with Anesthesia: No History of Problems with Anesthesia: No NPO: Yes ASA Class: III Final Preanesthetic Review: No Changes in Pt Med Stat, Meds/Allgs Chart Reviewed, Consent Obtained/Reviewed and Anes Risks/Benef Reviewed Patient Risk: Intermediate Procedure Risk: Intermediate Assessment/Block/Sedation in SS: Assess/Block/Sedation-SS Anesthetic Plan Anesthetic Plan: MAC: and Agree w/ Assess. and Plan Disposition: Standard PACU
--- NOTE | 2022-05-16 12:39 | MHC.SHP ---
Pre-Procedural Eval Section A Date of Service: 05/16/22 The patient is an INPATIENT: No Changes since office visit: No Cold of Flu in the past 2 weeks, No New Medical Problems, No Changes in Medication and No Patient answered all questions The History & Physical has been completed within 30 days and I have reviewed it.: Yes Section B Chief Complaint: Age-related nuclear cataract, left eye Allergies: Allergies Allergy/AdvReac Type Severity Reaction Status Date / Time Sulfa (Sulfonamide Allergy Unknown SWELLING Unverified 05/13/22 15:09 Antibiotics) [SULFA (SULFONAMIDE ANTIBIOTICS)] Plan Diagnosis/Plan: Unchanged I have reviewed the history and physical and performed a pertinent physical examination on my patient. No changes have occurred unless specified.
[2022-05-19 08:39] VITALS: BP 110/59; PULSE 79; RESP 18; TEMP 36.2; O2SAT 97; BMI 34.9
[2022-05-19] MEDS: Tetracaine HCl/PF 0.5% Oph Sol 4 ML DROPS 1 DROP EYE-LEFT (08:58)
[2022-05-19] MEDS: Ketorolac Tromethamine 0.5% Op 5 ML DROPS 1 DROP EYE-LEFT ×3 (08:58→09:01)
[2022-05-19] MEDS: Tropicamide 1 % Ophth Sol 3 ML BTL 1 DROP EYE-LEFT ×3 (08:58→09:01)
[2022-05-19] MEDS: Cyclopentolate 1 % Ophth Sol 2 ML DRPBTL 1 DROP EYE-LEFT ×3 (08:58→09:01)
[2022-05-19] MEDS: Phenylephrine HCL 2.5% Oph SoL 2 ML BOTTLE 1 DROP EYE-LEFT ×3 (08:59→09:01)
[2022-05-19] MEDS: Lactated Ringers 500 ML 50 ML IV (09:06)
--- NOTE | 2022-05-19 09:22 | HO.PNOPHT ---
Ophthalmology Procedure Procedure Date of Service: 05/19/22 Ophthalmology Viscoelastic: Healon Duet Dual Pack Pro Ophthalmology Lenses: [id number] (20) Procedure Notes: PREOPERATIVE DIAGNOSIS: Decreased visual acuity left eye secondary to cataract POSTOPERATIVE DIAGNOSIS: Same PROCEDURE: Left cataract extraction with intraocular lens insertion SURGEON: Miguel Chacon M.D. ANESTHESIA: Topical/MAC ESTIMATED BLOOD LOSS: None COMPLICATIONS: None After obtaining informed consent, the patient was brought to the operation room suite and placed in the supine position. After adequate sedation per anesthesia, topical drops of Tetracaine were given to the left eye. The eye was then prepped and draped in the usual sterile fashion. The operating room microscope was then positioned over the operative eye and a lid speculum placed. A paracentesis was created. Viscoelastic was then instilled into the anterior chamber. A three plane incision was then created temporally, utilizing a 2.85 mm keratome. Capsulotomy forceps were then utilized to create a circular tear capsulotomy. Hydrodissection and hydrodelineation were carried out until adequate mobilization of the nucleus occurred. Phacoemulsification was then utilized to remove the dense central nucleus followed by removal of the cortical material utilizing the automated aspiration irrigation unit. Viscoat elastic was instilled into the posterior capsular bag followed by placement of a posterior chamber intraocular lens without difficulty. The residual Viscoat elastic was then removed utilizing the automated IA machine. The wound was check and found to be watertight. The patient tolerated the procedure well and the lid speculum was removed. Intracameral injection of Vigamox 0.1 mL followed by a subtenon injection of Kenalog-40 0.2 mL were administered. The patient will be seen in the a.m.
[2022-05-19 09:52] VITALS: BP 108/54; PULSE 74; RESP 14; TEMP 36.3; O2SAT 98
== END 2022-05-19 09:55 | disposition home or self-care (01) ==
PROVIDERS: PCP Internal Medicine; Visit Provider Ophthalmology
PROC: (CPT 66985; principal; 2022-05-19 10:20)
DX: H25.12 Age-related nuclear cataract, left eye (principal); H52.4 Presbyopia; I10 Essential (primary) hypertension; E78.00 Pure hypercholesterolemia, unspecified; M81.0 Age-related osteoporosis without current pathological fracture; Z79.899 Other long term (current) drug therapy; Z88.1 Allergy status to other antibiotic agents; Z88.2 Allergy status to sulfonamides; Z87.891 Personal history of nicotine dependence
CPT/HCPCS: 66984; J2250; J3300; V2632

== ENCOUNTER 2022-06-02 08:23 | Day surgery (SDC) | payer MEDICARE, OTHER, SELFPAY ==
[2022-05-13 15:15] VITALS: BMI 34.9
--- NOTE | 2022-05-27 12:53 | P.CONAN_ITS ---
Documented by User: Dayana Dorsey NP 05/27/22 12:54 HPI - Anesthesia Eval Consult details Narrative: 77yo F for Right Cataract Extraction IOL Insertion PCP cleared Left eye 05/19/22 with MAC: [facility] Active Problems Active Problems: All Active Problems (Updated 05/13/22 @ 15:12 by Ilene Dewey RN) Fracture of hip, right, closed (Acute) Periprosthetic fracture of hip (Acute) Past Medical History Medical History Anxiety Cataracts, both eyes GERD (gastroesophageal reflux disease) History of blood transfusion History of femur fracture Hyperlipemia Hypertension Knee pain, left Low back pain Osteoarthritis PUD (peptic ulcer disease) Urinary tract infection Family History Family history of problems with anesthesia: No Surgical History Surgical History History of esophagogastroduodenoscopy (EGD) Hx of bilateral hip replacements Hx of colonoscopy Hx of hysterectomy History of Problems with Anesthesia: No Social History Social History Are you a primary career development engineer to a significant other at home: No Do you presently have visiting nurse or other home services: No Patient Tobacco Use Status: Never used Tobacco Use of substances other than those prescribed or required for medical reasons: No Are you DNR?: No Advance Directives: No Advance Directives Information Provided: Yes Advance Directives on File: No Recently lost weight without trying: No Nutrition Risks: Surgical patient >75years service: No Current occupational status: retired Meds Allergies Allergy/AdvReac Type Severity Reaction Status Date / Time ciprofloxacin [From Cipro] Allergy Hives Verified 05/19/22 09:14 Home Medications Medication Instructions Recorded Confirmed Last Taken Type alprazolam 0.5 mg tablet 0.5 mg PO BID PRN Anxiety 01/14/21 05/13/22 05/19/22 History bupropion HCl 150 mg 24 hr tablet, 150 mg PO DAILY 01/14/21 05/13/22 05/19/22 History extended release coenzyme Q10 100 mg capsule 100 mg PO DAILY 01/14/21 05/13/22 01/14/21 History estradiol 10 mcg vaginal tablet 10 mcg vaginal 2XW 01/14/21 05/13/22 01/12/21 History (Vagifem) ezetimibe 10 mg tablet 10 mg PO DAILY 01/14/21 05/13/22 01/14/21 History magnesium 500 mg tablet 500 mg PO DAILY 01/14/21 05/13/22 01/14/21 History multivitamin 1 tab PO DAILY 01/14/21 05/13/22 01/14/21 History omeprazole 40 mg capsule,delayed 40 mg PO QAM 01/14/21 05/13/22 05/19/22 History release quinapril 10 mg tablet 10 mg PO DAILY 01/14/21 05/13/22 06/02/22 History rosuvastatin 20 mg tablet 20 mg PO DAILY 01/14/21 05/13/22 01/13/21 History sertraline 100 mg tablet 200 mg PO DAILY 01/14/21 05/13/22 05/19/22 History aspirin 81 mg chewable tablet 81 mg PO DAILY 05/13/22 05/13/22 Unknown History sulfamethoxazole 800 1 tab PO BID 05/13/22 05/13/22 Unknown History mg-trimethoprim 160 mg tablet (Bactrim DS) alprazolam 0.5 mg tablet 1 tab PO BID PRN Anxiety 06/02/22 06/02/22 06/02/22 History Exam Exam Date and Time: May 27, 2022 1253 Height,Weight and Vital Signs: Height 4 ft 11 in Weight 78.471 kg Assessment and Plan Assessment Anesthesia Assessment: Chart Reviewed Final Anesthetic Review Family History of Problems with Anesthesia: No History of Problems with Anesthesia: No Documented by User: Nathan Giraldo MD 06/02/22 12:13 [facility] Past Medical History Medical History Anxiety Cataracts, both eyes GERD (gastroesophageal reflux disease) History of blood transfusion History of femur fracture Hyperlipemia Hypertension Knee pain, left Low back pain Osteoarthritis PUD (peptic ulcer disease) Urinary tract infection Surgical History Surgical History History of esophagogastroduodenoscopy (EGD) Hx of bilateral hip replacements Hx of colonoscopy Hx of hysterectomy Social History Social History Are you a primary career development engineer to a significant other at home: No Do you presently have visiting nurse or other home services: No Patient Tobacco Use Status: Never used Tobacco Use of substances other than those prescribed or required for medical reasons: No Are you DNR?: No Advance Directives: No Advance Directives Information Provided: Yes Advance Directives on File: No Recently lost weight without trying: No Nutrition Risks: Surgical patient >75years service: No Current occupational status: retired [employer] Allergies Allergy/AdvReac Type Severity Reaction Status Date / Time ciprofloxacin [From Cipro] Allergy Hives Verified 05/19/22 09:14 Home Medications Medication Instructions Recorded Confirmed Last Taken Type alprazolam 0.5 mg tablet 0.5 mg PO BID PRN Anxiety 01/14/21 05/13/22 05/19/22 History bupropion HCl 150 mg 24 hr tablet, 150 mg PO DAILY 01/14/21 05/13/22 05/19/22 H istory extended release coenzyme Q10 100 mg capsule 100 mg PO DAILY 01/14/21 05/13/22 01/14/21 History estradiol 10 mcg vaginal tablet 10 mcg vaginal 2XW 01/14/21 05/13/22 01/12/21 History (Vagifem) ezetimibe 10 mg tablet 10 mg PO DAILY 01/14/21 05/13/22 01/14/21 History magnesium 500 mg tablet 500 mg PO DAILY 01/14/21 05/13/22 01/14/21 History multivitamin 1 tab PO DAILY 01/14/21 05/13/22 01/14/21 History omeprazole 40 mg capsule,delayed 40 mg PO QAM 01/14/21 05/13/22 05/19/22 History release quinapril 10 mg tablet 10 mg PO DAILY 01/14/21 05/13/22 06/02/22 History rosuvastatin 20 mg tablet 20 mg PO DAILY 01/14/21 05/13/22 01/13/21 History sertraline 100 mg tablet 200 mg PO DAILY 01/14/21 05/13/22 05/19/22 History aspirin 81 mg chewable tablet 81 mg PO DAILY 05/13/22 05/13/22 Unknown History sulfamethoxazole 800 1 tab PO BID 05/13/22 05/13/22 Unknown History mg-trimethoprim 160 mg tablet (Bactrim DS) alprazolam 0.5 mg tablet 1 tab PO BID PRN Anxiety 06/02/22 06/02/22 06/02/22 History Exam Airway Mallampati Class: II TM Dist: >3cm Neck ROM: Full Loose/Missing/Broken Teeth: Yes (Yes (extremely poor discolored teeth uppers spaced out diffusely, lowers also same and a couple are missing lower front)) Heart: rrr+[id number] Lungs: cta b/l Assessment and Plan Assessment Anesthesia Assessment: Anesthesia Plan Discussed Final Anesthetic Review NPO: Yes ASA Class: III Final Preanesthetic Review: No Changes in Pt Med Stat, Meds/Allgs Chart Reviewed, Consent Obtained/Reviewed and Anes Risks/Benef Reviewed Patient Risk: Intermediate Procedure Risk: Intermediate Assessment/Block/Sedation in SS: Assess/Block/Sedation-SS Anesthetic Plan Anesthetic Plan: MAC: and Agree w/ Assess. and Plan Disposition: Standard PACU
--- NOTE | 2022-05-28 08:37 | MHC.SHP ---
Pre-Procedural Eval Section A Date of Service: 05/28/22 The patient is an INPATIENT: No Changes since office visit: No Cold of Flu in the past 2 weeks, No New Medical Problems, No Changes in Medication and No Patient answered all questions The History & Physical has been completed within 30 days and I have reviewed it.: Yes Section B Chief Complaint: Age-related nuclear cataract, right eye Allergies: Allergies Allergy/AdvReac Type Severity Reaction Status Date / Time ciprofloxacin [From Cipro] Allergy Hives Verified 05/19/22 09:14 Plan Diagnosis/Plan: Unchanged I have reviewed the history and physical and performed a pertinent physical examination on my patient. No changes have occurred unless specified.
[2022-06-02 10:39] VITALS: BP 148/69; PULSE 80; RESP 18; TEMP 36.1; O2SAT 96
[2022-06-02] MEDS: Tetracaine HCl/PF 0.5% Oph Sol 4 ML DROPS 1 DROP EYE-RIGHT (11:46)
[2022-06-02] MEDS: Lactated Ringers 500 ML 50 ML IV (11:52)
[2022-06-02] MEDS: Cyclopentolate 1 % Ophth Sol 2 ML DRPBTL 1 DROP EYE-RIGHT ×3 (11:53→12:01)
[2022-06-02] MEDS: Tropicamide 1 % Ophth Sol 3 ML BTL 1 DROP EYE-RIGHT ×3 (11:53→12:01)
[2022-06-02] MEDS: Ketorolac Tromethamine 0.5% Op 5 ML DROPS 1 DROP EYE-RIGHT ×3 (11:53→12:01)
[2022-06-02] MEDS: Phenylephrine HCL 2.5% Oph SoL 2 ML BOTTLE 1 DROP EYE-RIGHT ×3 (11:53→12:01)
--- NOTE | 2022-06-02 13:15 | HO.PNOPHT ---
Ophthalmology Procedure Procedure Date of Service: 06/02/22 Ophthalmology Viscoelastic: Healsaeid Bernalt Dual Pack Pro Ophthalmology Lenses: [id number] (20) Procedure Notes: PREOPERATIVE DIAGNOSIS: Decreased visual acuity right eye secondary to cataract POSTOPERATIVE DIAGNOSIS: Same PROCEDURE: Right cataract extraction with intraocular lens insertion SURGEON: Miguel Chacon M.D. ANESTHESIA: Topical/MAC ESTIMATED BLOOD LOSS: None COMPLICATIONS: None After obtaining informed consent, the patient was brought to the operating room suite and placed in the supine position. After adequate sedation per anesthesia, topical drops of Tetracaine were given to the right eye. The eye was then prepped and draped in the usual sterile fashion. The operating room microscope was then positioned over the operative eye and a lid speculum placed. A paracentesis was created. Viscoelastic was then instilled into the anterior chamber. A three plane incision was then created temporally, utilizing a 2.85 mm keratome. Capsulotomy forceps were then utilized to create a circular tear capsulotomy. Hydrodissection and hydrodelineation were carried out until adequate mobilization of the nucleus occurred. Phacoemulsification was then utilized to remove the dense central nucleus followed by removal of the cortical material utilizing the automated aspiration irrigation unit. Viscoelastic was instilled into the posterior capsular bag followed by placement of a posterior chamber intraocular lens without difficulty. The residual Viscoelastic was then removed utilizing the automated IA machine. The wound was checked and found to be watertight. The patient tolerated the procedure well and the lid speculum was removed. Intracameral injection of Vigamox 0.1 mL followed by a subtenon injection of Kenalog-40 0.2 mL were administered. The patient will be seen in the a.m.
[2022-06-02 13:42] VITALS: BP 128/61; PULSE 70; RESP 16; TEMP 36.3; O2SAT 100
== END 2022-06-02 13:58 | disposition home or self-care (01) ==
PROVIDERS: PCP Internal Medicine; Visit Provider Ophthalmology
PROC: (CPT 66985; principal; 2022-06-02 11:00)
DX: H25.11 Age-related nuclear cataract, right eye (principal); I10 Essential (primary) hypertension; Z79.82 Long term (current) use of aspirin; Z79.899 Other long term (current) drug therapy; Z88.1 Allergy status to other antibiotic agents; Z88.2 Allergy status to sulfonamides
CPT/HCPCS: 66984; J2250; J3300; J7999; V2632

== ENCOUNTER 2023-09-16 12:32 | Outpatient (REF) | payer MEDICARE, OTHER, SELFPAY ==
[2023-09-16 16:27] LABS: MANUAL DIFF FLAG NO
[2023-09-16 16:32] LABS: Basophils Percent Auto 0.4 % (0-2); Eosinophils Absolute Auto 0.2 X10*3/uL (0.0-0.4); Eosinophils Percent Auto 2.6 % (0-4); Hematocrit 37.5 % (37.0-47.0); Hemoglobin 11.6 g/dl (12.0-16.0); Imm Gran Abs Auto 0.02 X10*3/uL (0.00-0.03); Imm Gran Pct Auto 0.3 % (0.0-0.4); Lymphocytes Absolute Auto 1.9 X10*3/uL (1.2-4.9); Lymphocytes Percent Auto 24.3 % (20-40); Mean Corpuscular HGB Conc 30.9 g/dl (31.0-35.0); Mean Corpuscular Hemoglobin 26.5 pg (27.0-33.0); Mean Corpuscular Volume 85.6 fL (80.0-98.0); Mean Platelet Volume 10.3 fL (9.4-12.3); Monocytes Absolute Auto 0.5 X10*3/uL (0.1-1.2); Monocytes Percent Auto 5.7 % (2-11); Neutrophils Absolute Auto 5.3 x10*3/uL (2.0-8.3); Neutrophils Percent Auto 66.7 % (45-73); Platelet Count 323 X10*3/uL (160-400); Red Blood Count 4.38 X10*6/uL (4.20-5.50); Red Cell Distribution Width 15.9 % (11.0-16.0); White Blood Count 7.9 X10*3/uL (4.8-10.8)
[2023-09-16 16:43] LABS: Alanine Aminotransferase 10 U/L (0-31); Albumin Level 3.8 g/dL (3.5-5.0); Alkaline Phosphatase 104 U/L (39-117); Anion Gap 14 (12-20); Aspartate Amino Transferase 15 U/L (5-31); Bilirubin Total 0.4 mg/dL (0.0-1.0); Blood Urea Nitrogen 16 mg/dL (9-16); Calcium 9.4 mg/dL (8.4-10.2); Carbon Dioxide 27 mmol/L (22-29); Chloride 105 mmol/L (96-108); Cholesterol 161 mg/dL (<200); Estimated Glomerular Filt Rate > 60; Glucose Fasting 97 mg/dL (60-99); HDL Cholesterol 49 mg/dL (>40); LDL Cholesterol Calculated 77 mg/dL (<100); Potassium 4.5 mmol/L (3.3-5.1); Sodium 141 mmol/L (135-145); Total Protein 6.8 g/dL (6.5-8.0); Triglycerides 179 mg/dL (<150)
[2023-09-16 16:53] LABS: Appearance Urine Cloudy; Color Urine Yellow; Glucose Urine UA Negative (Negative); Leukocyte Esterase Urine Moderate (2+) (Negative); Nitrite Urine Positive (Negative); UMIC TRIGGER UACC YES; Urine Blood Negative (Negative); Urine Ketones Negative (Negative); Urine Protein Negative (Neg-Trace)
[2023-09-16 16:57] LABS: Bacteria Urine 4+ (None Seen); Hyaline Casts Urine 0-2 /LPF (0-2); RBC Urine 0-2 /HPF (0-2); UACC Culture Trigger YES; WBC Urine >50 /HPF (0-5)
== END 2023-09-16 12:33 | disposition home or self-care (01) ==
LOC: HO.HMGCLDS 12:32
PROVIDERS: PCP Internal Medicine; Visit Provider Internal Medicine
DX: R53.83 Other fatigue (principal); E78.01 Familial hypercholesterolemia; R30.0 Dysuria
CPT/HCPCS: 36415; 80053; 80061; 81001; 85025; 87086; 87088; 87186